=== PATIENT | male | born 1960 | race Hispanic/Latino ===

== ENCOUNTER 2021-04-29 07:48 | Emergency (ER) | payer OTHER, SELFPAY ==
[2021-04-29] MEDS ORDERED: EPINEPHrine 1 MG/10 ML SYR IV ONE (07:49)
[2021-04-29 08:10] LABS: Potassium 4.2 mmol/L (3.5-5.1)
[2021-04-29 08:12] LABS: Basophils % 0.3 % (0-1.3); Hematocrit 38.5 % (39.6-49.0); MPV 9.5 fL (7.6-11.3); RBC Red Blood Cell Count 4.08 M/uL (4.33-5.43)
--- NOTE | 2021-04-29 11:08 | EDPHYS ---
Physician Documentation [facility] Name: Jayme Guzman Age: 60 yrs Sex: Male : 1960 Arrival Date: 04/29/2021 Time: 07:48 Bed 6 Private MD: ED Physician Madi Medley HPI: 04/29 08:06 This 60 yrs old Male presents to ER via Unassigned with complaints of CPR. kdr 08:06 Preceding the arrest, the patient collapsed, was found down Patient was found down and kdr unresponsive at work. He had last talked with the family member about 6:40 AM. He was found approximately 7 AM. EMS arrived shortly thereafter. They establish an airway and an IO in the left proximal tibia. They noted the patient to be in asystole on arrival. They began ACLS. By the time of their arrival in the emergency department, they had administered 4 rounds of epinephrine. Patient continued to be in asystole the entire time. The initial rhythm in the ED was asystole. There was no evidence of trauma and the patient otherwise looked to be in good health.. The arrest occurred at work. Pre-hospital course: The arrest was not witnessed by others. Bystanders at the scene did not perform CPR. EMS care prior to arrival: initiation of ACLS, ACLS details: Initial rhythm was asystole. The presenting rhythm is asystole. Airway: oral intubation, Medications given by EMS prior to arrival - Epinephrine IV x 4 doses, Response to therapy: continued arrest. The patient has not experienced similar symptoms in the past. The patient has not recently seen a physician. Historical: - Allergies: 08:56 Unable to obtain; jd3 - Home Meds: 08:56 Unable to obtain [Active]; jd3 - PMHx: 08:56 Hypertensive disorder; jd3 - PSHx: 08:56 Unable to Obtain; jd3 ROS: 08:06 Constitutional: Patient was unresponsive and unable to give any history kdr 08:06 Unable to obtain ROS due to patient is on ventilator. Exam: 08:06 Constitutional: The patient is intubated and unresponsive Head/Face: Normocephalic, kdr atraumatic. Neck: Trachea midline, no thyromegaly or masses palpated, and no cervical lymphadenopathy. Supple, full range of motion without nuchal rigidity, or vertebral point tenderness. No Meningismus. Chest/axilla: Normal chest wall appearance and motion. Nontender with no deformity. No lesions are appreciated. 08:06 Cardiovascular: Rate: Asystole. Vital Signs: 07:45 Pulse 0; Resp 20 A; Pulse Ox 73% on ETT ambu; em MDM: 08:06 Data reviewed: vital signs, nurses notes, lab test result(s). Counseling: I had a kdr detailed discussion with the patient and/or guardian regarding: the historical points, exam findings, and any diagnostic results supporting the discharge/admit diagnosis, lab results, Patient was pronounced at 8:03 AM. Medication response: Patient was given several rounds of ACLS medications/epinephrine. There was no cardiac response to our interventions.. Response to treatment: There is no appreciated change of the patient's symptoms at this time, Still asystole. ED course: Despite the prompt response of EMS and initiation of ACLS, the patient remained unresponsive to standard ACLS interventions. At no time did the patient exhibit any cardiac activity. I informed the family of the fact that the patient had been unresponsive to interventions for over an hour. 1 son accompany me back to the room at which time we did a pulse check and noted the patient still to be in asystole and without a pulse. I informed the son that we would terminate resuscitative efforts. The son returned to his family in the lobby. There were no other special circumstances or situations. 10:39 Patient medically screened. kdr 04/29 07:54 Order name: CBC with Diff aa5 04/29 07:54 Order name: Basic Metabolic Panel aa5 04/29 07:55 Order name: CBC with Automated Diff EDMS 04/29 07:55 Order name: Basic Metabolic Panel EDMS 04/29 08:20 Order name: CBC Smear Scan EDMS 04/29 08:23 Order name: glucometer results - FOR PT WITH NO ID em Administered Medications: 07:46 Drug: EPINEPHrine 0.1mg/mL 1:10,000 1 mg {Note: LEFT IO.} Route: IVP; Site: Other; em 08:26 Follow up: Response: No adverse reaction em 07:48 Drug: Sodium Bicarbonate 1 amp {Note: LEFT IO.} Route: IVP; Site: Other; em 08:26 Follow up: Response: No adverse reaction em 07:51 Drug: EPINEPHrine 0.1mg/mL 1:10,000 1 mg {Note: LEFT IO.} Route: IVP; Site: Other; em 08:26 Follow up: Response: No adverse reaction em 07:52 Drug: EPINEPHrine 0.1mg/mL 1:10,000 1 mg {Note: LEFT IO.} Route: IVP; Site: Other; em 08:27 Follow up: Response: No adverse reaction em 07:54 Drug: EPINEPHrine 0.1mg/mL 1:10,000 1 mg {Note: LEFT IO.} Route: IVP; Site: Other; em 08:27 Follow up: Response: No adverse reaction em 07:57 Drug: EPINEPHrine 0.1mg/mL 1:10,000 1 mg Route: IVP; Site: right antecubital; em 08:27 Follow up: Response: No adverse reaction em 08:00 Drug: EPINEPHrine 0.1mg/mL 1:10,000 1 mg Route: IVP; Site: right antecubital; em 08:27 Follow up: Response: No adverse reaction em 08:03 Drug: EPINEPHrine 0.1mg/mL 1:10,000 1 mg Route: IVP; Site: right antecubital; em 08:27 Follow up: Response: No adverse reaction em Point of Care Testing: Blood Glucose: 07:50 Blood Glucose: 162 mg/dL; em Ranges: Critical Glucose Levels:Adult <50 mg/dl or >400 mg/dl <40 mg/dl or >180 mg/dl Disposition: 08:14 . kdr Disposition Summary: 04/29/21 10:39 Patient Location: Reports Developer [facility] Pronouncing Physician: Madi Medley Time of : 08:03 04/29/2021 kdr Diagnosis - Sudden : Without a known cause kdr Signatures: Dispatcher [employer] Madi Guerra MD MD kdr Munoz, Edgar, RN RN John Cook RN RN jd3
--- NOTE | 2021-04-29 11:08 | ER ---
Nurse's Notes [facility] Name: Jayme Guzman Age: 60 yrs Sex: Male : 1960 Arrival Date: 04/29/2021 Time: 07:48 Bed 6 Private MD: Diagnosis: Sudden : Without a known cause Presentation: 04/29 07:45 Chief complaint: EMS states: called out for unresponsive male at the [place], em there were no bystanders on scene when EMS arrived, pt was pulseless and CPR was initiate at 0 721, patient was given 4 rounds of epi prior to arrival, BGL was 92 on arrival, patient was asystole and pulseless, CPR resumed. Care prior to arrival: Oral intubation, CPR via thumper performed by EMS. Compressions began at 07:21. 07:45 Method Of Arrival: EMS: [place] em 07:45 Acuity: JB 1 em Historical: - Allergies: 08:56 Unable to obtain; jd3 - Home Meds: 08:56 Unable to obtain [Active]; jd3 - PMHx: 08:56 Hypertensive disorder; jd3 - PSHx: 08:56 Unable to Obtain; jd3 Assessment: 07:45 CPR assessment: unresponsive, no respiratory effort, intubated, Ambu ventilation, em pulses absent w/ compressions. Cardiac rhythm is asystole. Neuro: Level of Consciousness is unresponsive. Cardiovascular: Rhythm is asystole. Respiratory: Airway via oral airway. Derm: Skin is dusky, Skin temperature is cool. 07:52 CPR assessment: unresponsive, no respiratory effort, pulses absent w/ compressions. em Neuro: Level of Consciousness is unresponsive. Cardiovascular: Rhythm is asystole. Respiratory: Airway via oral airway. 07:56 CPR assessment: unresponsive, no respiratory effort, Ambu ventilation, pulses absent w/ em compressions. 07:58 CPR assessment: unresponsive, no respiratory effort, Ambu ventilation, pulses absent w/ em compressions. Cardiac rhythm is asystole. Cardiac rhythm is asystole. Cardiac rhythm is asystole. Neuro: Level of Consciousness is unresponsive. Neuro: Level of Consciousness is unresponsive. 08:01 CPR assessment: unresponsive, no respiratory effort, Ambu ventilation, pulses absent w/ em compressions. Cardiac rhythm is asystole. Neuro: Level of Consciousness is unresponsive. 08:03 CPR assessment: unresponsive, no respiratory effort, Ambu ventilation, pulses absent w/ em compressions. Cardiac rhythm is asystole. Respiratory: Airway via oral airway. Derm: Skin is dusky, Skin temperature is cool. Vital Signs: 07:45 Pulse 0; Resp 20 A; Pulse Ox 73% on ETT ambu; em ED Course: 07:45 Patient has correct armband on for positive identification. em 07:48 Patient arrived in ED. ds1 08:05 Madi Medley MD is Attending Physician. kdr 08:10 Triage completed. em 08:13 John Roberts RN is Primary Nurse. jd3 08:27 Police notified at 08:10. bd 10:36 Madi Medley MD is Pronouncing Provider. kdr Administered Medications: 07:46 Drug: EPINEPHrine 0.1mg/mL 1:10,000 1 mg {Note: LEFT IO.} Route: IVP; Site: Other; em 08:26 Follow up: Response: No adverse reaction em 07:48 Drug: Sodium Bicarbonate 1 amp {Note: LEFT IO.} Route: IVP; Site: Other; em 08:26 Follow up: Response: No adverse reaction em 07:51 Drug: EPINEPHrine 0.1mg/mL 1:10,000 1 mg {Note: LEFT IO.} Route: IVP; Site: Other; em 08:26 Follow up: Response: No adverse reaction em 07:52 Drug: EPINEPHrine 0.1mg/mL 1:10,000 1 mg {Note: LEFT IO.} Route: IVP; Site: Other; em 08:27 Follow up: Response: No adverse reaction em 07:54 Drug: EPINEPHrine 0.1mg/mL 1:10,000 1 mg {Note: LEFT IO.} Route: IVP; Site: Other; em 08:27 Follow up: Response: No adverse reaction em 07:57 Drug: EPINEPHrine 0.1mg/mL 1:10,000 1 mg Route: IVP; Site: right antecubital; em 08:27 Follow up: Response: No adverse reaction em 08:00 Drug: EPINEPHrine 0.1mg/mL 1:10,000 1 mg Route: IVP; Site: right antecubital; em 08:27 Follow up: Response: No adverse reaction em 08:03 Drug: EPINEPHrine 0.1mg/mL 1:10,000 1 mg Route: IVP; Site: right antecubital; em 08:27 Follow up: Response: No adverse reaction em Point of Care Testing: Blood Glucose: 07:50 Blood Glucose: 162 mg/dL; em Ranges: Outcome: 07:45 Outcome Patient em 07:45 Patient : Time of 08:03 Pronounced by Madi Medley MD 07:45 Condition: 09:44 Patient : Body released to [place] aa 10:43 Patient left the ED. jd3 Signatures: Dana Fleming Kevin, MD MD [facility] Marc Sawyer RN RN em Fariha Owens ds1 Jeannette Sandhu RN RN aa5 John Roberts RN RN jd3
[2021-04-29 11:13] LABS: Blood Morphology Comment NOT SEEN (NOT SEEN); Platelet Estimate ADEQ; White Blood Cell Scan OK (OK)
== END 2021-04-29 10:43 ==
LOC: ER 07:48
DX: I10 Essential (primary) hypertension
CPT/HCPCS: 36415; 80048; 82947; 85025; 92950; 99285; J0171